=== PATIENT | female | born 1970 | race Native Hawaiian/Other Pacific Islander ===

== ENCOUNTER 2020-01-07 08:51 | Outpatient (CLI) | payer OTHER | END 2020-01-07 23:56 | disposition home or self-care (01) | LOC: US 08:51 | DX: R94.8 Abnormal results of function studies of other organs and systems (principal) ==

== ENCOUNTER 2020-07-29 10:31 | Observation (INO) | payer OTHER ==
[2020-07-29] VITALS (10 sets, daily range): BP systolic 109–183; BP diastolic 66–125; TEMP 98–98.2; Ht 165.1 cm; Wt 68.2 kg
[~2020-07-29] VITALS: Ht 165.1 cm; Wt 68.2 kg
[2020-07-29 11:29] LABS: PLATELET COUNT 184 K/uL (152-353)
[2020-07-29 11:41] LABS: POTASSIUM 3.7 mmol/L (3.6-5.2); SODIUM 140 mmol/L (136-145)
[2020-07-29 12:00] LABS: PARTIAL THROMBOPLASTIN TIME 29.2 SECONDS (24.5-33.6)
[2020-07-29] MEDS ORDERED: BUPR75TA PO (16:11)
[2020-07-29] MEDS ORDERED: EUTHYROX75 MCG PO (16:12)
[2020-07-29] MEDS ORDERED: PARO20TA3 PO (16:13)
[2020-07-29] MEDS ORDERED: OLMESARTAN MEDO20 MG PO (16:13)
--- NOTE | 2020-07-29 17:29 | NUR ---
NOTIFIED DR. RAPHAEL OF PT BP AT 112/69 AND PT HAS NO COMPLAINTS OF CHEST PAIN AT THIS TIME, DR. RAPHAEL ORDERS TO DC NITROPASTE, NO FURTHER ORDERS GIVEN
[2020-07-30] VITALS: BP 112/72; TEMP 98.2
[2020-07-30 04:00] VITALS: BP 131/79; TEMP 98.1
[2020-07-30 08:00] VITALS: BP 138/86; TEMP 98.3
--- NOTE | 2020-07-30 09:09 | NUR ---
07/30/20 0830 PT AMBULATING IN ROOM AFTER TO RETURING FORM RESTROOM.PT DENIES ANY PAIN OR DISCOMFORT STATES SHE FEELS FOOD THIS MORNING.CC
[2020-07-30 12:00] VITALS: BP 131/85; TEMP 98
--- NOTE | 2020-07-30 12:31 | NUR ---
07/30/20 1232 IN PATIENT ROOM TO DISCUSS PLAN OF CARE CONCERNING DISCAHRGE AND MEDICATIONS.CC
[2020-07-30] MEDS ORDERED: LISI20TA31 PO (12:46)
[2020-07-30] MEDS ORDERED: TRICOR145 M1 PO (12:47)
--- NOTE | 2020-07-30 13:29 | NUR ---
07/30/20 1325 DISCHARGE ISTRUCTIONS GIVEN AND SIGNED RX GIVEN.PT WILL CALL PRIMARY PHYSICAN TO FOLLOW UP.SALINE LOCK REMOVED APPLIED 2X2 SECURED WITH TAPE.CC
--- NOTE | 2020-07-30 14:22 | NUR ---
07/30/20 1330 PT TOOK OUT VIA [facility] VECHICLE ACCOMPAINED PER .CC
== END 2020-07-30 13:30 | disposition home or self-care (01) ==
LOC: ED 10:31 → MED/SURG 12:30
PROVIDERS: ADMIT Hospitalist; ATTEND Internal Medicine Endocrinology, Diabetes & Metabolism
DX: R07.89 Other chest pain (principal); I10 Essential (primary) hypertension; E03.8 Other specified hypothyroidism; Z72.0 Tobacco use; F41.8 Other specified anxiety disorders; R42 Dizziness and giddiness
CPT/HCPCS: 36415; 80053; 80061; 82550; 83036; 83880; 84484; 85027; 85610; 85730; 87635; 93005; 96374; 96375; 99220; 99284; G0378; J0360; J1650; J2405; U0003

== ENCOUNTER 2022-04-06 16:10 | Emergency (ER) | payer OTHER ==
[~2022-04-06] VITALS: Ht 165.1 cm; Wt 68.0 kg
[2022-04-06 16:10] VITALS: BP 128/84; TEMP 97.1
[~2022-04-06 16:10] MED LIST: BUPR75TA PO; EUTHYROX75 MCG PO; LISI20TA31 PO; OLMESARTAN MEDO20 MG PO; PARO20TA3 PO; TRICOR145 M1 PO
== END 2022-04-06 18:45 | disposition home or self-care (01) ==
LOC: ED 16:10
DX: S10.83XA Contusion of other specified part of neck, initial encounter (principal); W11.XXXA Fall on and from ladder, initial encounter; Y92.098 Other place in other non-institutional residence as the place of occurrence of the external cause
CPT/HCPCS: 96372; 99283; J1885; J2360

== ENCOUNTER 2022-09-15 11:02 | Outpatient (CLI) | payer OTHER | END 2022-09-15 19:16 | disposition home or self-care (01) | LOC: MAMMO 11:02 | PROVIDERS: ATTEND Family Medicine | DX: Z12.31 Encounter for screening mammogram for malignant neoplasm of breast (principal) ==